=== PATIENT | male | born 1995 | race African-American/Black ===

== ENCOUNTER 2020-10-01 01:49 | Emergency (ER) | payer MEDICAID ==
[~2020-10-01] VITALS: Ht 170.2 cm; Wt 70.0 kg
[2020-10-01] MEDS ORDERED: OLANZAPINE 10MG TABLET PO SCH (02:45)
[2020-10-01 03:58] LABS: BASOPHILS % 0.6 % (0.0-2.0); EOSINOPHILS % 0.1 % (0.0-5.0); LYMPHOCYTES % 28.2 % (20.0-50.0); MEAN CORPUSCULAR HEMOGLOBIN 31.4 pg (28.0-32.0); MEAN CORPUSCULAR VOLUME 94.5 fL (80.0-94.0); MEAN PLATELET VOLUME 10.3 fl (7.4-10.4); MONOCYTES % 4.8 % (2.0-8.0); NEUTROPHILS % 66.3 % (40.0-76.0); PLATELET 169 x1000/uL (130-400); RED BLOOD CELL COUNT 4.77 mill/uL (4.7-6.1); RED CELL DISTRIBUTION WIDTH 13.1 % (11.6-14.6)
[2020-10-01 03:58] LABS: CLARITY URINE CLEAR (CLEAR); COLOR URINE YELLOW (YELLOW); KETONES URINE 1+ (NEGATIVE); LEUKOCYTE ESTERASE URINE NEGATIVE (NEGATIVE); NITRITE URINE NEGATIVE (NEGATIVE); OCCULT BLOOD URINE NEGATIVE (NEGATIVE); PH URINE 7.5 (4.5-8.0); PROTEIN URINE TRACE (NEGATIVE); SPECIFIC GRAVITY URINE 1.022 (1.005-1.030)
[2020-10-01 04:03] LABS: CHLORIDE 108 mEq/L (98-107)
[2020-10-01 04:06] LABS: ETHANOL BLOOD 75 mg/dL
[2020-10-01 04:07] LABS: *AMPHETAMINES SCREEN URINE NEGATIVE (NEGATIVE); *BARBITURATES SCREEN URINE NEGATIVE (NEGATIVE); *BENZODIAZEPINES SCREEN URINE NEGATIVE (NEGATIVE); *COCAINE SCREEN URINE NEGATIVE (NEGATIVE)
[2020-10-01 04:08] LABS: CANNABINOID URINE SCREEN NEGATIVE (NEGATIVE); METHADONE URINE SCREEN NEGATIVE (NEGATIVE); OPIATES URINE SCREEN NEGATIVE (NEGATIVE); PHENCYCLIDINE URINE SCREEN NEGATIVE (NEGATIVE)
[2020-10-01 07:38] VITALS: BP 118/78
[2020-10-01] MEDS ORDERED: RISP1 MT (11:23)
== END 2020-10-01 12:29 | disposition home or self-care (01) ==
LOC: ER 01:49
DX: R07.9 Chest pain, unspecified (principal); F20.9 Schizophrenia, unspecified
CPT/HCPCS: 36415; 80048; 80305; 80307; 80320; 80329; 81003; 85025; 93005; 99285; G0480

== ENCOUNTER 2024-12-13 07:15 | Emergency (ER) | payer MEDICAID ==
[~2024-12-13] VITALS: Ht 175.3 cm; Wt 68.0 kg
[~2024-12-13 07:15] MED LIST: RISP1 MT
[2024-12-13 07:16] VITALS: O2SAT 98
[2024-12-13] MEDS: FAMOTIDINE 20MG TABLET PO ONE (07:53)
[2024-12-13] MEDS: MAGNESIUM/ALUMINUM HYDROXIDE/SIMETHICONE 30ML UDC PO ONE (07:53)
[2024-12-13 08:21] LABS: BASOPHILS % 0.6 % (0.0-2.0); EOSINOPHILS % 2.9 % (0.0-5.0); HEMATOCRIT. 38.1 % (42.0-52.0); HEMOGLOBIN. 12.7 g/dL (14.0-18.0); LYMPHOCYTES % 18.3 % (20.0-50.0); MEAN PLATELET VOLUME 8.6 fl (7.4-10.4); MONOCYTES % 8.3 % (2.0-8.0); NEUTROPHILS % 69.9 % (40.0-76.0); PLATELET 153 x1000/uL (130-400); RED BLOOD CELL COUNT 3.82 mill/uL (4.7-6.1); RED CELL DISTRIBUTION WIDTH 13.9 % (11.6-14.6)
[2024-12-13 08:39] LABS: CREATININE 1.0 mg/dL (0.6-1.3); UREA NITROGEN BLOOD 11 mg/dL (9-23)
[2024-12-13 08:41] LABS: ASPARTATE AMINOTRANSFERASE 19 IU/L (<34); BILIRUBIN TOTAL 0.4 mg/dL (0.1-1.0); PROTEIN TOTAL 6.3 g/dL (6.0-8.3)
[2024-12-13] MEDS ORDERED: FAMO-134 MT (08:58)
[2024-12-13 09:03] VITALS: BP 114/88; PULSE 80; RESP 18; TEMP 37.1; O2SAT 100
== END 2024-12-13 09:06 | disposition home or self-care (01) ==
LOC: ER 07:24
DX: R10.13 Epigastric pain (principal); F20.9 Schizophrenia, unspecified; F12.90 Cannabis use, unspecified, uncomplicated; Z79.899 Other long term (current) drug therapy
CPT/HCPCS: 36415; 80053; 85025; 99283